=== PATIENT | female | born 2005 | race American Indian/Alaskan Native ===

== ENCOUNTER 2024-04-13 15:52 | Day surgery (SDC) | payer OTHER ==
[2024-04-13] MEDS: Sodium Chloride 0.9% 1,000 ML IV ONE ×2 (16:27→19:02)
[2024-04-13] MEDS: Ondansetron 4 MG/2 ML SDV IVPUSH ONE (16:29)
[2024-04-13] MEDS: Morphine 2 MG/ML SYRINGE IVPUSH ONE (16:29)
[2024-04-13] MEDS: cefTRIAXone 2 GM in Sodium Chloride 0.9% 50 ML IV ONE (16:29)
[2024-04-13] MEDS: Sodium Chloride 0.9% 2.5 ML Syringe FLUSH PRN ×2 (16:30→19:25)
[2024-04-13] MEDS: Sodium Chloride 0.9% 10 ML Syringe FLUSH PRN ×2 (16:30→19:25)
[2024-04-13 16:34] LABS: BASOPHILS ABSOLUTE AUTO 0.01 K/uL (0.00-0.30); BASOPHILS PERCENT AUTO 0.1 % (0.0-1.0); EOSINOPHILS ABSOLUTE AUTO 0.03 K/uL (0.00-0.70); EOSINOPHILS PERCENT AUTO 0.2 % (0.0-5.0); HEMATOCRIT 33.1 % (37.0-47.0); HEMOGLOBIN 11.8 g/dL (12.0-16.0); IMMATURE GRAN ABSOLUTE AUTO 0.09 K/uL (0.00-0.05); IMMATURE GRAN PERCENT AUTO 0.6 % (0.0-0.4); LYMPHOCYTES PERCENT AUTO 7.5 % (50.0-65.0); MEAN CORPUSCULAR HEMOGLOBIN 31.6 pg (28.0-32.0); MEAN CORPUSCULAR HGB CONC 35.6 g/dL (32.0-36.0); MEAN CORPUSCULAR VOLUME 88.7 fL (83.0-99.0); MONOCYTES ABSOLUTE AUTO 0.59 K/uL (0.10-1.40); MONOCYTES PERCENT AUTO 3.7 % (2.0-10.0); NEUTROPHILS ABSOLUTE AUTO 14.15 K/uL (1.50-8.50); NEUTROPHILS PERCENT AUTO 87.9 % (35.0-45.0); PLATELET COUNT,PLT 202 K/uL (150-400); RED BLOOD CELL COUNT 3.73 M/uL (4.10-5.30); WHITE BLOOD CELL COUNT,WBC 16.07 K/uL (4.5-13.5)
[2024-04-13 16:51] LABS: INR 0.94 (0.86-1.11)
[2024-04-13 17:05] LABS: LACTIC ACID 1.2 mmol/L (0.4-2.0)
[2024-04-13 17:31] LABS: A/G RATIO 0.6 (0.9-1.6); ALBUMIN 2.7 g/dL (3.4-5.0); BILIRUBIN TOTAL 0.7 mg/dL (0.2-1.0); CALCIUM 8.7 mg/dL (8.5-10.1); CARBON DIOXIDE,CO2 22.2 mmol/L (21.0-32.0); CREATININE 0.6 mg/dL (0.6-1.0); EST CRCL DRUG DOSING (CG) 130.23 mL/min; POTASSIUM,K 3.7 mmol/L (3.5-5.1); PROTEIN TOTAL,TP 6.9 g/dL (6.4-8.2)
[2024-04-13] MEDS: Acetaminophen 500 MG Tab PO ONE (18:01)
[2024-04-13] MEDS: metroNIDAZOLE/Normal Saline 500 MG in Premix Bag 1 BAG IV ONE (18:33)
[2024-04-13] MEDS ORDERED: Sodium Chloride 0.9% 20 ML SDV IV PRN (18:36)
[2024-04-13] MEDS: Azithromycin 500 MG in Sodium Chloride 0.9% 250 ML IV ONE (18:56)
[2024-04-13] MEDS: Ketorolac 30 MG/ML SDV IVPUSH ONE (19:02)
[2024-04-13] MEDS ORDERED: propofoL 50 ML ONE (19:08)
[2024-04-13] MEDS ORDERED: Propofol 200 MG/20 ML SDV ONE ×3 (19:09→20:38)
[2024-04-13] MEDS ORDERED: fentaNYL 250 MCG/5 ML SDV ONE (19:09)
[2024-04-13] MEDS ORDERED: Lidocaine 2% 11 ML Jelly Filled Syringe ONE (19:13)
[2024-04-13] MEDS ORDERED: Methylergonovine 0.2 MG/1 ML Amp ONE (19:13)
[2024-04-13] MEDS ORDERED: Misoprostol 200 MCG Tab ONE (19:49)
[2024-04-13] MEDS ORDERED: Phenylephrine HCl In 0.9% NaCl 1 MG/10 ML Syringe ONE (20:14)
[2024-04-13] MEDS ORDERED: Sugammadex Sodium 200 MG/2 ML VIAL IV ONE (20:38)
[2024-04-13] MEDS ORDERED: Ondansetron 4 MG/2 ML SDV ONE (20:38)
[2024-04-13] MEDS ORDERED: fentaNYL 100 MCG/2 ML SDV ONE (20:44)
== END 2024-04-13 22:45 ==
LOC: MW.ED 15:52 → MW.SDS 18:46 → MW.MS 22:00 → MW.SDS 22:45
PROVIDERS: ATTEND Obstetrics & Gynecology
DX: O03.37 Sepsis following incomplete spontaneous abortion (principal); O03.4 Incomplete spontaneous abortion without complication; A41.9 Sepsis, unspecified organism; J45.909 Unspecified asthma, uncomplicated; F32.A Depression, unspecified; F41.9 Anxiety disorder, unspecified; Z79.899 Other long term (current) drug therapy
CPT/HCPCS: 36415; 59830; 76801; 76817; 80053; 83605; 83690; 84702; 85025; 85610; 85730; 86850; 86900; 86901; 87040; 87635; 96365; 96367; 96368; 96375; 99285; A9270; C1729; J0131; J0456; J0696; J1836; J1885; J2210; J2270; J2371; J2405; J2704; J3010; J3490; J7030; J7050; 00940; 59820; 99291; U0002

== ENCOUNTER 2024-07-02 18:44 | Emergency (ER) | payer BC, OTHER ==
[2024-07-02] MEDS: Sodium Chloride 0.9% 10 ML Syringe FLUSH PRN (19:33)
[2024-07-02] MEDS: Sodium Chloride 0.9% 2.5 ML Syringe FLUSH PRN (19:33)
[2024-07-02] MEDS: Sodium Chloride 0.9% 1,000 ML IV ONE (19:38)
[2024-07-02 19:47] LABS: BASOPHILS ABSOLUTE AUTO 0.05 K/uL (0.00-0.30); BASOPHILS PERCENT AUTO 0.3 % (0.0-1.0); EOSINOPHILS PERCENT AUTO 0.6 % (0.0-5.0); HEMATOCRIT 37.4 % (37.0-47.0); HEMOGLOBIN 12.4 g/dL (12.0-16.0); IMMATURE GRAN ABSOLUTE AUTO 0.06 K/uL (0.00-0.05); IMMATURE GRAN PERCENT AUTO 0.4 % (0.0-0.4); LYMPHOCYTES ABSOLUTE AUTO 3.29 K/uL (2.00-8.80); LYMPHOCYTES PERCENT AUTO 19.4 % (50.0-65.0); MEAN CORPUSCULAR HEMOGLOBIN 28.1 pg (28.0-32.0); MEAN CORPUSCULAR HGB CONC 33.2 g/dL (32.0-36.0); MEAN CORPUSCULAR VOLUME 84.8 fL (83.0-99.0); MEAN PLATELET VOLUME 10.1 fL (9.4-12.3); MONOCYTES ABSOLUTE AUTO 0.88 K/uL (0.10-1.40); MONOCYTES PERCENT AUTO 5.2 % (2.0-10.0); NEUTROPHILS PERCENT AUTO 74.1 % (35.0-45.0); PLATELET COUNT,PLT 264 K/uL (150-400); RED BLOOD CELL COUNT 4.41 M/uL (4.10-5.30); WHITE BLOOD CELL COUNT,WBC 16.98 K/uL (4.5-13.5)
[2024-07-02 19:49] LABS: APPEARANCE,URINE CLEAR; BILIRUBIN,URINE NEGATIVE (NEGATIVE); COLOR,URINE YELLOW; GLUCOSE,URINE NEGATIVE (NEGATIVE); KETONES,URINE TRACE mg/dL (NEGATIVE); LEUKOCYTE ESTERASE,URINE NEGATIVE (NEGATIVE); NITRITE,URINE NEGATIVE (NEGATIVE); OCCULT BLOOD,URINE NEGATIVE (NEGATIVE); PROTEIN,URINE NEGATIVE (NEGATIVE)
[2024-07-02 20:16] LABS: A/G RATIO 0.9 (0.9-1.6); ALBUMIN 3.6 g/dL (3.4-5.0); BILIRUBIN TOTAL 0.4 mg/dL (0.2-1.0); CARBON DIOXIDE,CO2 26.9 mmol/L (21.0-32.0); CREATININE 0.7 mg/dL (0.6-1.0); EST CRCL DRUG DOSING (CG) 111.62 mL/min; MAGNESIUM 2.1 mg/dL (1.8-2.4); PROTEIN TOTAL,TP 7.4 g/dL (6.4-8.2)
[2024-07-02] MEDS: Ondansetron 4 MG/2 ML SDV IVPUSH ONE (20:38)
[2024-07-02] MEDS: Alum Hydro/Mag Hydro/Simeth XS 15 ML, Lidocaine 2% 5 ML PO ONE (20:38)
[2024-07-02] MEDS: Pantoprazole 40 MG in Sodium Chloride 0.9% 10 ML IVPUSH ONE (20:38)
[2024-07-02] MEDS: Ketorolac 30 MG/ML SDV IVPUSH ONE (20:38)
== END 2024-07-02 21:23 | disposition home or self-care (01) ==
LOC: MW.ED 18:44
DX: K21.9 Gastro-esophageal reflux disease without esophagitis (principal); Z75.8 Other problems related to medical facilities and other health care
CPT/HCPCS: 36415; 76705; 80053; 81003; 81025; 83690; 83735; 85025; 96361; 96374; 96375; 99284; A9270; J1885; J2405; J2470; J3490; J7030